=== PATIENT | male | born 1950 | race Caucasian/White ===

== ENCOUNTER 2016-12-29 06:22 | Observation (INO) | payer MEDICARE, OTHER ==
[~2016-12-29] VITALS: Ht 185.4 cm; Wt 56.8 kg
--- NOTE | ~2016-12-29 | A ---
[facility] Nutrition Therapy DATE: 12/30/16 Patient: EDDIE Prasad AXEL Physician: SRAVAN Address: [address] [place] [address] Room/Bed: [address] [place] [address], Zip: [place] [address] Admit Date: 12/29/16 Date of : 52 Height: 6 1 Weight: 125 56.8 NUTRITIONAL ASSESSMENT: REASON: PT SEEN FOR LOW BMI + 1 NUTRITION RISK PT RE: WEIGHT LOSS + TUBE FEED ASSESSMENT, ALSO CONSULT RECEIVED PT IS 66 Y.O. MALE ADMITTED FOR EGC PMH: RADIATION FIBROSIS, HODGKINS DISEASE S/P CHEMO & RADIATION, SEIZURE DISORDER (2'RADIATION?) Anthropometrics: 6'1", WT: 125# (57 KG), BMI: 16.5, 68%IBW Labs: NA+: 134, ALB: 3.3 Meds: KEPPRA, D5% I/O & Bowel function: 620/575 Skin Integrity: NO KNOWN SKIN ISSUES Estimated Nutrition Needs: 6080-8318 KCAL (32-36 KCAL/KG BW) 85-103 G PRO (1.5-1.8 G PRO/KG BW) FLUIDS CONSISTENT W/KCAL NEEDS OR MANAGE PER MD Assessment: CHART REVIEWED AND EVENTS NOTED. PT SEEN FOR LOW BMI + ONE NUTRITION RISK PT RE: WEIGHT LOSS, CONSULT FOR PEG TUBE RECOMMENDATIONS. PT IS S/P PEG PLACEMENT ON 12/29/16 IN ENDOSCOPY, TRANSFERRED TO . RD SPOKE TO PT AND AT BEDSIDE. REPORTS PT'S PO INTAKE HAS BEEN MINIMAL PAST SEVERAL WEEKS. EXPLAINED PT DEVELOPED "SMELLS SEIZURES" NOTING PT'S SENSATION OF SMELL HAS DIMINISHED AFFECTING HIS PO INTAKE AND APPETITE. STATES PT'S UBW IS ~242# AND HAS GONE DOWN TO CURRENT WEIGHT OF 125# IN PAST YEAR AND A HALF (~115# SEVERE WEIGHT LOSS NOTED). PT CURRENTLY RECEIVING BOLUS ENTERAL NUTRITION SUPPORT OF JEVITY 1.5/4 CANS DAILY (240 ML). PT TOLERATING BOLUS FEEDS, PER , PT AND RN. THIS RD WILL FURTHER ASSESS PT'S NUTRITIONAL NEEDS. PT AND REPORTED NO DIET QUESTIONS. RD TO FOLLOW. SEE RECOMMENDATIONS BELOW. Dx: SEVERE KCAL AND PROTEIN MALNUTRITION R/T CURRENT CLINICAL CONDITION, PMH, MINIMAL PO INTAKE AND APPETITE NOTED AEB LOW BMI OF 16.5, 68%IBW, SEVERE ~115# WEIGHT LOSS NOTED IN PAST YEAR AND A HALF. Intervention: 1. PEG PLACEMENT 2. RD CONSULT 3. BOLUS ENTERAL NUTRITION Monitoring, Evaluation and Goals: [facility] Nutrition Therapy DATE: 12/30/16 Patient: EDDIE BENTLEY Physician: SRAVAN Address: [address] [facility] Room/Bed: [address] [place] [address], Zip: [place] [address] Admit Date: 12/29/16 Date of : 51 Height: 6 1 Weight: 125 56.8 1. ENTERAL NUTRITION; PROVIDE >80% ESTIMATED VOLUME X 24 HOURS W/NO SIGNS OF INTOLERANCE 2. WEIGHTS; PROMOTE GRADUAL WEIGHT GAIN; PREVENT FURTHER WEIGHT LOSS 3. LABS; WNL MONITOR: -TF RATE/TOLERANCE -WEIGHTS -LABS Recommendations: 1. RECOMMEND TO ADVANCE NUMBER OF CANS-TOTAL BOLUS FEEDS OF JEVITY 1.5/6 CANS (237 ML EACH CAN) TOTAL DAILY -PROVIDES 2160 KCAL, 91 G PRO, 1094 ML FREE H20 ADD FREE H20 FLUSHES OF 150 ML AFTER EACH FEEDING RECOMMEND ONE CAN (237 ML) q 4 HOURS TO MEET PT'S CURRENT ESTIMATED NEEDS 2. IF PT UNABLE TO TOLERATE BOLUS FEEDS, RECOMMEND CONTINUOUS 24-HOUR ENTERAL FEEDING OF JEVITY 1.5 @ 20 ML/HR, ADVANCE 10 ML q 4 HOURS TO GOAL RATE OF 60 ML/HR -PROVIDES 2160 KCAL, 91 G PRO, 1094 ML FREE H20 ADD FREE H20 FLUSHES OF 150 ML q 4 HOURS TO MEET PT'S CURRENT ESTIMATED FLUID NEEDS 3. CONSULT CLAIMS SERVICE REPRESENTATIVE FOR SAFE SWALLOW EVALUATION 4. PLEASE WEIGH q 3 DAYS FOR MONITORING PURPOSES, PT CLINICALLY UNDERWEIGHT RD WILL F/U PER PROTOCOL PT IS MOD/SEVERELY COMPROMISED Respectfully, MARIO KELLOGG MS, RD, LD Food and Nutritional Services [facility] cc: client file
--- NOTE | ~2016-12-29 | MAL ---
[facility] Nutrition Therapy DATE: 12/30/16 Patient: EDDIE BENTLEY Physician: SRAVAN Address: [address] [facility] Room/Bed: [address] [place] [address], Zip: [place] [address] Admit Date: 12/29/16 Date of : 51 Height: 6 1 Weight: 125 56.8 PHYSICAL MALNUTRITION ASSESSMENT Energy Intake, Chronic Illness Severely reduced: </=50% needs for >/=1 month Energy Intake Comment: PT AND REPORT MINIMAL PO INTAKE PAST SEVERAL WEEKS. Weight Loss, Chronic Illness Severe: >5% past 1 month Severe: >7.5% past 3 months Severe: >10% past 6 months Severe: >20% past 1 year Weight Loss, Comment: REPORT PT HAS LOST ~117# OVER PAST YEAR AND A HALF. (UBW IS ~242#). Physical Findings Body Fat and Muscle Mass Moderate: (suggested) some loss of subqutaneous fat and/or muscle mass Severe: (obvious) significant muscle wasting and/or loss of subcutaneous fat Physical Findings Functional Capacity Moderate: (suggested) reduced functional capacity Severe: (obvious) bedridden or otherwise significantly reduced functional capacity Physical Findings Comment: PER RD OBSERVATION, HOLLOW/SCOOPING DEPRESSED TEMPORAL NOTED. ALSO, PROTRUDING & PROMINENT SHOULDER, CLAVICLE AND SCAPULA NOTED. MINIMAL MUSCLE DEFINITION OBSERVED IN BICEPS, TRICEPS AND CALVES. EYES OBSERVED TO BE PRONOUNCED, HOLLOW AND DEPRESSED AND PROMINENT CHEST NOTED. DRY HAIR, EYES AND MOUTH OBSERVED. Dietitian Malnutrition Assessment Score: MODERATE/SEVERELY COMPROMISED Malnutrition Etiology Summary: Chronic illness moderate Chronic illness severe Malnutrition Survey Comment: SEE RD ASSESSMENT 12/30/16 Respectfully, MARIO KELLOGG MS, RD, LD [facility] Nutrition Therapy DATE: 12/30/16 Patient: EDDIE BENTLEY Physician: SRAVAN Address: [address] [facility] Room/Bed: [address] [place] [address], Zip: [place] [address] Admit Date: 12/29/16 Date of : 51 Height: 6 1 Weight: 125 56.8 Food and Nutritional Services [facility] cc: client file
--- NOTE | ~2016-12-29 | CO ---
Unit #: [id number] #: [id number] Patient: CEFERINO BENTLEY [id number] [address] [place], [place] [address] [id number] I MR#: [id number] NAME: CEFERINO BENTLEY ROOM: 47 Age: 66 Sex: M Admission Date: 12/29/2016 : 1950 Attending Physician: Efraín Decker M.D. Primary Care Physician: Nirmal Hanson M.D. Requesting Physician: Efraín Deckre M.D. Consultation Date: 12/29/2016 CONSULTATION REPORT REASON FOR CONSULTATION Abnormal weight loss, please evaluate for malignancy. HISTORY OF PRESENT ILLNESS Ceferino Bentley is 66 years old with a history of Hodgkin's disease diagnosed in 1991, treated with chemoradiation therapy. In the past year to year and a half, he has lost more than 100 pounds in weight secondary to apparently decreased sensation of smell and parosmia. Weight loss reached the point where a PEG tube was recommended and placed earlier today. 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 Mr. Bentley has had several long-term problems related to his chemoradiation therapy with Hodgkin's disease which has never reoccurred. 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 He recently underwent evaluation with a cardiac workup including echocardiogram and stress test which were negative. 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 He also developed seizures in 2007 having recurrent seizures, five or six a night, until about three years ago when they have stopped. PAST MEDICAL HISTORY 1. History of progressive weight loss as detailed. 2. Seizure disorder. 3. Radiation fibrosis. PAST SURGICAL HISTORY 1. Left carotid subclavian graft. 2. Right carotid endarterectomy. 3. Colonoscopy. 4. Hemorrhoidectomy. 5. Lymph node biopsy at time of diagnosis of Hodgkin's disease. FAMILY HISTORY No history of malignancy in the immediate family. SOCIAL HISTORY He is , lives with his . He was unable to work from 2007 after developing a seizure disorder. He was previously disabled from 1991 to 1995 because of his Hodgkin's disease. Smoked a pack a day until 1990 when he was diagnosed with Hodgkin's disease. Does not drink any alcohol. REVIEW OF SYSTEMS 14-point review of systems. CONSTITUTIONAL: As discussed. Unit #: [id number] #: [id number] Patient: CEFERINO BENTLEY EYES: Negative. EARS, NOSE, MOUTH AND THROAT: Negative. CARDIOVASCULAR: No chest pain, no palpitations. RESPIRATORY: Chronic shortness of breathing, cough. No hemoptysis. GASTROINTESTINAL: Parosmia, progressive weight loss. No change in bowel habits. GENITOURINARY: Negative. NEUROLOGIC: Repeated episodes of dizziness and vertigo. Parosmia. History of a seizure disorder. PSYCHIATRIC: Negative. ALLERGIC/LYMPHATIC: Negative. SKIN: Negative. PHYSICAL EXAMINATION GENERAL: On examination, he is a middle aged man who looks significantly older than stated age. VITAL SIGNS: Temperature is 98.2, pulse rate is 59, O2 sats 96% on room air, blood pressure 133/86. HEENT: Shows evidence of recent weight loss. No pallor or icterus. Mucous membranes are moist. NECK: No adenopathy, JVD, thyromegaly. Bilateral healed incisions of carotid endarterectomy. CARDIOVASCULAR SYSTEM: First and second heart sounds are heard, regular, with no murmurs, gallops, rubs. LUNGS: Chest expansion symmetric bilaterally. Decreased breath sounds on the right side. ABDOMEN: Soft, nontender. Bowel sounds active. EXTREMITIES: Warm with good pulses. No edema, cyanosis, clubbing. NEUROLOGICAL: He is awake, alert, oriented x3 without any focal findings. PSYCHIATRIC: Normal affect. SKIN: Negative. LYMPHATIC: Negative. ALLERGIC/ENDOCRINE: Negative. DIAGNOSTIC STUDIES LABORATORY: Labs pending. ASSESSMENT AND PLAN Mr. 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 He has developed parosmia and progressive weight loss and now has a feeding tube placed. Consultation is to evaluate for malignancy. Would recommend basic chemistries, thyroid functions, ESR, sed rate, and I will review his recent CT scan studies and based upon that, additional recommendations. I had an extensive discussion about the situation with Mr. Bentley as well as his who I met separately in his room. Thank you for allowing me to participate in his care. Dictated by... Patrick Ortega M.D. [facility]/gian Unit #: [id number] #: [id number] Patient: CEFERINO BENTLEY TD: 12/30/2016 08:28 JOB #: [id number] CONSULTATION REPORT Page 1 of 1 X Patrick Ortega MD X CONSULTATION REPORT
--- NOTE | ~2016-12-29 | OR ---
Unit #: [id number] #: [id number] Patient: EDDIE BENTLEY [id number] [address] [address] [id number] I MR#: [id number] NAME: EDDIE BENTLEY. ROOM: 476 Date of Procedure: 12/29/2016 Admission Date: 12/29/2016 Surgeon: Efraín Decker M.D. : 1950 Attending Physician: Efraín Decker M.D. Primary Care Physician: Nirmal Hanson M.D. OPERATIVE REPORT JOB NOTE: CC: PRIMARY CARE PHYSICIAN PROCEDURES PERFORMED 1. Esophagogastroduodenoscopy with foreign body removal. 2. Esophagogastroduodenoscopy with snare polypectomy with hemoclip application. INDICATIONS FOR PROCEDURE The patient with severe weight loss, anorexia, unable to eat, cachectic, and was brought in for an EGD and PEG tube placement. MEDICATIONS Monitored anesthesia. POSTOPERATIVE FINDINGS 1. A large foreign body esophagus. 2. . 3. . 4. Normal duodenum and distal duodenum. PLAN Follow up on pathology report. I will start on tube feedings. DESCRIPTION OF PROCEDURE The patient was explained of the procedure, risks, and benefits along with risks and benefits of anesthesia. He was brought to the endoscopy room. Propofol anesthesia was given. Bite block was placed. The scope was passed down the mouth into the esophagus, stomach, duodenum, and distal duodenum. Findings have been described above. Gently, the scope was pulled out. He tolerated it well. No major complications were seen. Dictated by... Roshan Peña/keshav TD: 01/05/2017 09:19 JOB #: [id number] Unit #: [id number] #: [id number] Patient: EDDIE BENTLEY OPERATIVE REPORT Page 1 of 1 X Efraín Decker MD X PROCEDURE OPERATIVE NOTE
[~2016-12-29 06:22] MED LIST: ATIVAN PO; AUGMENTIN875 M1 PO; CHILDREN'S CLARI5 MG; COUMADIN7.5 MG; DESYREL150 M1; FAMOTIDINE; FAMOTIDINE PO; KEPPRA500 M2; MEDROL4 MG/DOSE- PO
[2016-12-29] MEDS ORDERED: KEPPRA500 MG PO (07:11)
[2016-12-29] MEDS ORDERED: LAMOTRIGINE100 MG PO (07:11)
[2016-12-29] MEDS ORDERED: ZYRTEC10 M1 PO (07:12)
[2016-12-29] MEDS ORDERED: WARFARIN SODIU7.5 M1 PO (07:13)
[2016-12-29] MEDS ORDERED: DESYREL100 MG PO (07:13)
[2016-12-29] MEDS ORDERED: PROAIR HFA8.5 GM INH (07:14)
[2016-12-29] MEDS ORDERED: SYMBICORT (07:14)
[2016-12-29] MEDS ORDERED: STOOL SOFTENER (07:15)
[2016-12-29] MEDS ORDERED: [UNRECOGNIZED DRUG - REMARK] (07:15)
[2016-12-29] MEDS ORDERED: MUCINEX (07:15)
[2016-12-29 12:04] LABS: BASOPHIL% 0.7 % (0-2.5); EOSINOPHIL# 0.4 X10e3 (0-0.7); EOSINOPHIL% 6.8 % (0.0-7.0); HEMATOCRIT 37.1 % (38.0-50.0); HEMOGLOBIN 12.1 gm/dL (13.0-16.0); LYMPHOCYTE# 0.7 X10e3 (1.0-3.5); LYMPHOCYTE% 12.5 % (17.0-45.0); MEAN CELL VOLUME 85.5 FL (83-96); MEAN CORPUSCULAR HEMOGLOBIN 27.8 PG (28-34); MEAN CORPUSCULAR HGB CONC 32.5 g/dL (30-36); MEAN PLATELET VOLUME 5.6 FL (6.5-11.5); MONOCYTE# 0.5 X10e3 (0-1.0); MONOCYTE% 9.1 % (3.0-12.0); NEUTROPHIL# 3.8 X10e3 (1.5-7.1); NEUTROPHIL% 70.9 % (40-75); PLATELET COUNT 314 X10e3 (140-420); RED BLOOD COUNT 4.34 X10e (3.90-5.60); RED CELL DISTRIBUTION WIDTH 14.2 % (11.0-15.5); WHITE BLOOD COUNT 5.3 X10e3 (4.0-10.5)
[2016-12-29 12:07] LABS: DIFF IND NO
[2016-12-29 12:31] LABS: ALBUMIN SERUM 3.3 g/dL (3.5-5.0); BILIRUBIN,TOTAL 0.5 mg/dL (0.2-2.0); BUN/CREATININE RATIO 12.22; CALCIUM SERUM 9.3 mg/dL (8.4-10.2); CREATININE SERUM 0.9 mg/dL (0.6-1.4); GLOM FILT RATE Estimated 89.3 mL/min (>60); POTASSIUM 4.8 mmol/L (3.5-5.1)
[2016-12-30] MEDS ORDERED: LORTAB 5-325 M1 EACH PO (15:28)
[2016-12-31 21:45] LABS: CA 19-9 14 U/mL (<34); CA125 58 U/mL (<35)
== END 2016-12-30 17:00 | disposition home health service (06) ==
LOC: COPS 06:22 → CPACUOF 10:42 → C4C 10:42 → CPACUOF 12:01 → C4C 12:01
PROVIDERS: Internal Medicine
DX: K31.7 Polyp of stomach and duodenum (principal); T18.108A Unspecified foreign body in esophagus causing other injury, initial encounter; G40.909 Epilepsy, unspecified, not intractable, without status epilepticus; Z85.118 Personal history of other malignant neoplasm of bronchus and lung; Z87.891 Personal history of nicotine dependence; Z88.8 Allergy status to other drugs, medicaments and biological substances; Z98.890 Other specified postprocedural states
CPT/HCPCS: 80053; 82378; 84443; 85025; 85610; 86301; 86304; 88305; 88312; 94760; 96374; 96376; G0378; J0690; J1170

== ENCOUNTER 2017-01-15 18:45 | Inpatient (IN) | payer MEDICARE, OTHER ==
[~2017-01-15] VITALS: Ht 182.9 cm; Wt 58.0 kg
--- NOTE | ~2017-01-15 | XA166 ---
[facility] A Service of [facility] RADIOLOGY TEXT RESULTS PATIENT: EDDIE BENTLEY LOCATION: A : [birth year] UNIT #: [id number] AGE: [address]: Bhaskar Donald MD SEX: M ORDER DR: [id number] [facility] [address] [facility]. [place], [place] [address] [id number] I MR#: [id number] Acc #: [id number] NAME: EDDIE BENTLEY. : 1950 SEX: M STUDY DATE/TIME: 01/16/2017 10:17 UNIT: [facility] ROOM: [facility] STUDY DESCRIPTION: XA PICC Line Placement WO Port Attending Physician: Bhaskar Donald M.D. Ordering Physician: Eric Ga M.D. Primary Care Physician: Nirmal Hanson M.D. MEDICAL IMAGING REPORT This report is preliminary unless electronic signature is present EXAM Right-sided PICC line placement. INDICATION Need for IV access in a patient with a history of Hodgkin's lymphoma. The procedure was explained to the patient including risks, benefits, potential complications, potential for alternative forms of treatment. Informed consent was obtained and, prior to initiating procedure, formal time-out procedure was performed. Using all elements of maximal sterile barrier technique including hand hygiene, caps, sterile gowns and gloves and masks, the right arm was prepped with 2% Chlorhexidine for cutaneous antisepsis and covered with a large sterile sheet. The ultrasound probe was covered with sterile probe cover and sterile gel was applied. Real-time sterile ultrasound guidance was used to localize a right upper extremity vein which was found to be patent and compressible. A hard copy ultrasound image was obtained after local anesthesia with 1% Xylocaine. The vein was punctured using real-time sterile ultrasound guidance and an 0.18 guidewire was advanced into the right axillary vein. Advanced peel-away sheath over the wire, however, was unable to manipulate the wire more distally. I did perform a venogram through the sheath and at least a portion of the sheath appeared to be extraluminal. At this point, the sheath was removed and manual pressure was applied until hemostasis was obtained and the vein was reaccessed more cranially. At this point, the wire was advanced easily into the superior vena cava. The peel-away sheath was replaced and a catheter was measured and trimmed and was advanced over the wire and positioned within the superior vena cava. Following placement of the catheter, it flushed and aspirated easily. Total fluoroscopy time was 0.4 minutes. AKA was 1 mGy. IMPRESSION [facility] A Service of [facility] RADIOLOGY TEXT RESULTS PATIENT: EDDIE BENTLEY LOCATION: [place] [address] : [birth year] UNIT #: [id number] AGE: [address]: Bhaskar Donald MD SEX: M ORDER DR: Technically successful placement of a right-sided PICC line which terminates within the superior vena cava. This catheter is ready for immediate use. Ultrasound and fluoroscopy were used during placement of the catheter and permanent images were saved. Dictated by... Jeanine West M.D. THIS IS AN ELECTRONICALLY VERIFIED REPORT Jeanine West M.D. at 01/19/2017 5:39 PM AFF/bd TD: 01/18/2017 13:47 JOB #: [id number] MEDICAL IMAGING REPORT Page 1 of 1 COPY
--- NOTE | ~2017-01-15 | CR97 ---
[facility] A Service of [facility] RADIOLOGY TEXT RESULTS PATIENT: EDDIE BENTLEY LOCATION: A 240-01 : [birth year] UNIT #: [id number] AGE: [address]: Bhaskar Donald MD SEX: M ORDER DR: [id number] [facility] [address] [facility]. [place], [place] [address] [id number] I MR#: [id number] Acc #: [id number] NAME: EDDIE BENTLEY. : 1950 SEX: M STUDY DATE/TIME: 01/16/2017 9:21 UNIT: [facility] ROOM: 240 STUDY DESCRIPTION: CR Esophagram Attending Physician: Bhaskar Donald M.D. Ordering Physician: Eric Ga M.D. Primary Care Physician: Nirmal Hanson M.D. MEDICAL IMAGING REPORT This report is preliminary unless electronic signature is present REVISED REPORT SEE ADDENDUM EXAM Esophagram, 01/16/2017. INDICATIONS 66-year-old male with possible aspiration. Reflux, cough, congestion symptoms 2 weeks. Lymphoma. Status post radiation therapy. TECHNIQUE Spot fluoroscopic views of the esophagus were obtained in various projections after the patient ingested gas crystals and thick and thin liquid barium on 01/16/2017. Correlation is made with CT 01/15/2017. FINDINGS Notes indicate that 2.6 minutes of fluoroscopy time was used in the case. 82 spot fluoroscopic images from the procedure were saved to the DR PACS. The examination is abnormal. There is aspiration of the liquid barium, best demonstrated on repeat swallowing. There was a spontaneous cough reflex. There is partial clearing of the barium from the trachea. Due to the aspiration, only limited imaging of the esophagus was obtained. There is diminished efficacy of the primary esophageal stripping wave and evidence of at least mild esophageal dysmotility. There appears to be a small amount of debris within the distal third esophagus. Contrast did pass across the GE junction into the stomach. Somewhat tortuous esophagus particularly in its proximal and mid aspects likely related to chronic lung changes appearing to reflect fibrosis, and old healed granulomatous disease with shift of mediastinal structures to the right secondary to right-sided volume loss. Please see the recent chest CT 01/15/2017, for further details. Postop changes associated with the left neck soft tissue. [facility] A Service of [facility] RADIOLOGY TEXT RESULTS PATIENT: EDDIE BENTLEY LOCATION: [place] [address] : [birth year] UNIT #: [id number] AGE: [address]: Bhaskar Donald MD SEX: M ORDER DR: IMPRESSION 1. Aspiration of the liquid barium with a spontaneous cough reflex. The patient would likely benefit from further evaluation with a dedicated video assisted speech swallow with speech therapy. 2. The esophagus demonstrates evidence of at least mild esophageal dysmotility. There is tortuosity of the proximal and middle thirds of the esophagus probably related to chronic fibrosis and scarring and shift of mediastinal structures to the right, better demonstrated on chest CT performed 01/15/2017. 3. Limited imaging of the remainder of the esophagus demonstrated no impediment to contrast passage into the stomach across the GE junction. 4. Notes indicate 2.6 minutes of fluoroscopy time used in the case. 82 images from the fluoroscopic procedure were saved to the DR PACS. Dictated by... Dickson Cleaning M.D. THIS IS AN ELECTRONICALLY VERIFIED REPORT Dickson Cleaning M.D. at 01/17/2017 7:38 AM Mehrdad TD: 01/16/2017 18:07 JOB #: [id number] ADDENDUM Not mentioned above, there is relative narrowing of the cervical esophagus. Given the history of malignancy and radiation therapy, this could relate to sequelae of radiation therapy, possibility of a reflux associated stricture is also in the differential. Upper endoscopy may be useful for further assessment. JOB# [id number] Dictated by... Dickson Cleaning M.D. THIS IS AN ELECTRONICALLY VERIFIED REPORT Dickson Cleaning M.D. at 01/18/2017 5:11 PM Bouchra TD: 01/16/2017 18:03 JOB #: [id number] CC: Sobradena/invision Please Delete STS. [facility] A Service of [facility] & [facility] RADIOLOGY TEXT RESULTS PATIENT: EDDIE BENTLEY LOCATION: [facility] 240-01 : [birth year] UNIT #: [id number] AGE: [address]: Bhaskar Donald MD SEX: M ORDER DR: MEDICAL IMAGING REPORT Page 1 of 1 COPY
--- NOTE | ~2017-01-15 | EKG ---
PATIENT: EDDIE BENTLEY UNIT #: [id number] Ventricular Rate: 112 BPM Atrial Rate: 112 BPM P-R Interval: 120 ms QRS Duration: 84 ms Q-T Interval: 310 ms QTC Calculation(Bezet): 423 ms P [place]: 31 degrees Calculated R [place]: 12 degrees Calculated T [place]: 69 degrees Diagnosis Line: Sinus tachycardia Early repolarization Diagnosis Line: Otherwise normal ECG Diagnosis Line: No previous ECGs available Diagnosis Line: Confirmed by THALIA HINSON MD ([id number]) on 01/15/2017 Diagnosis Line: 11:09:59 PM INTERPRETING MD: SRAVAN ALAMO
--- NOTE | ~2017-01-15 | FU ---
[facility] Nutrition Therapy DATE: 01/19/17 Patient: EDDIE LIRATERELL Physician: MARLENE Address: [address] Room/Bed: [address] [place] [address], Zip: [place] [phone] Admit Date: 01/15/17 Date of : 51 Height: 6 0 Weight: 127 58 NUTRITION MONITORING/FOLLOW-UP: Reason: Enteral nutrition follow-up/consult for recommendations Admitting dx: Pt is a 66 y/o male admitted with PNA sepsis Anthropometrics: Ht:73" Wt:57kg BMI:16.5 %IBW:68% Current wt: 58kg Labs: Na+:134, Gluc:118, BUN:11, Creat:.6, Ca++:8.5, POC:94-103, Lip:20 Meds: Coumadin, Reglan, Keppra, Robitussin, Protonix, Zosyn, Zofran GI: BM 01/17 Skin: J-tube site- ABD Estimated Nutrition Needs: 9366-6962 kcals (32-36 kcal/kg) 85-103 g protein (1.5-1.8 g pro/kg) Fluids consistent wt kcals needs or per MD. Assessment: Chart reviewed, events noted. RD was consulted for enteral nutrition recommendations. Pt is s/p G-tube removal and J-tube placement. RD was able to speak to the pt's . She states that the pt will not do 24 hr continuous feedings so the he can keep moving/socialize. Pt's wants recommendations for 14 hour feedings. Of note, pt was receiving bolus feedings in his G-tube at home prior to J-tube placement. The tube was moved due to the pt aspirating. Pt's tube feeds were off at time of visit due to pt being wheeled down for a video swallow evaluation. RD to leave extensive home enteral nutrition support regimen with pt's . RD will continue to follow-up per protocol. Dx: Severe protein calorie malnutrition r/t current clinical condition, PMH, minimal PO intake and appetite AEB BMI of 16.5 (underweight), 68% IBW, ~115# weight loss in year and a half (severe) - ACTIVE Intervention: See RD recs below Monitoring, Evaluation and Goals: 1. Oral diet advancement vs. enteral nutrition initiation -MET (EN initiated) 2. Promote gradual weight gain; prevent further weight loss - IN PROGRESS/NOT MET 3. Labs WNL - NOT MET (Na+, Gluc, BUN, Creat, Ca++, Lip) [facility] Nutrition Therapy DATE: 01/19/17 Patient: EDDIE Prasad MC Physician: MARLENE Address: [address] [place] [address] Room/Bed: [address] [place] [address], Zip: [place] [address] Admit Date: 01/15/17 Date of : 51 Height: 6 0 Weight: 127 58 Recommendations: 1. Once medically feasible, initiate nocturnal enteral nutrition support with Jevity 1.5. Goal rate will be reached over 4 nights. Enteral nutrition schedule is as follows: Night 1) Run at 60 ml x 14 hrs to provide 840 ml, 1260 kcals, 54 g protein, & 638 ml water. In addition to the nocturnal feeds, run at 60 ml x 6 hours during the day. This regimen will provide a total of 1200 ml, 1800 kcals, 77 g protein, & 912 ml water. Flush with 270 ml free water (warm tap or bottled water) 4 times daily, or per MD. Night 2) Run at 70 ml x 14 hours to provide 980 ml, 1470 kcals, 63 g protein, & 745 ml water. In addition to the nocturnal feeds, run at 70 ml x 3 hours during the day. This regimen provides a total of 1190 ml, 1785 kcals, 76 g protein, & 904 ml water. Flush with 280 ml free water 4 times daily, or per MD. Night 3) Run at 80 ml x 14 hours to provide 1120 ml, 1680 kcals, 71 g protein, & 851 ml water. In addition to the nocturnal feeds, run at 80 ml x 3 hours during the day. This regimen provides a total of 1360 ml, 2040 kcals, 87 g protein, & 1034 ml water. Flush with 250 ml free water 4 times daily, or per MD. Night 4) Run at GOAL rate of 95 ml x 14 hours. No additional feeds will be needed during the day. This regimen provides a total of 1330 ml, 1995 kcals, 85 g protein, & 1011 ml water. Flush with 170 ml free water 4 times daily, or per MD. 2. If 12 hour noctural feeds are desired instead of 14 hour feeds, recommendations are as follows: Jevity 1.5 at 110 ml x 12 hours This regimen will provide a total of 1320 ml, 1980 kcals, 84 g protein, & 1003 ml water Flush with 250 ml 4 times daily, or per MD 3. If higher volume nocturnal tube feeds are not well tolerated, change to 24 hour continuous feeds with Jevity 1.5 @ 55 ml/hr to provide 1320 ml, 1980 kcals, 84 g protein & 1003 ml water. Flush with 250 ml free water 4 times daily, or per MD. 4. Continue LOG SKIDDER evaluation for safe swallow. If the patient is started on an oral diet at home, please have home health dietitian re-assess the patient's enteral nutrition needs based on oral intake. [facility] Nutrition Therapy DATE: 01/19/17 Patient: EDDIE BENTLEY Physician: MARLENE Address: [address] [place] [address] Room/Bed: [address] [place] [address], Zip: [place] [address] Admit Date: 01/15/17 Date of : 51 Height: 6 0 Weight: 127 58 5. Continue to weigh q 3 days for monitoring purposes. Status: Mod-severe RD will follow Respectfully, Rachel Lam, Officer Captain Baldo Regalado, MS, RD, LD [employer] [facility] cc: client file
--- NOTE | ~2017-01-15 | TOC ---
Unit #: [id number] #: [id number] Patient: EDDIE BENTLEY [id number] [facility] [address]. [place], [place] [address] [id number] I MR#: [id number] NAME: EDDIE BENTLEY ROOM: 240 Age: 66 Sex: M Admission Date: 01/15/2017 : 1950 Attending Physician: Bhaskar Donald M.D. Primary Care Physician: Nirmal Hanson M.D. TRANSFER OF CARE SUMMARY HOSPITAL STAY SUMMARY DIAGNOSIS ON ADMISSION 1. Pneumonia. 2. Sepsis. CURRENT DIAGNOSES 1. Sepsis, resolved. 2. Pneumonia secondary to aspiration. 3. Fibrotic mediastinum. 4. History of lymphoma. 5. Dysphagia status post J-tube placement. 6. Weight loss. 7. History of Hodgkin disease. 8. 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 9. Seizure disorder. 10. History of deep vein thrombosis. 11. History of pulmonary embolism. 12. History of left subclavian steal syndrome. 13. History of right carotid endarterectomy and left carotid subclavian graft. CONSULTATIONS Dr. Zoltan Ga in pulmonary consultation. HOSPITAL COURSE Lsxoo-rpny-tebr-old patient was admitted to [facility] with fever. Details are as per admission H and P. Patient was treated for septic shock and aspiration pneumonia. Patient required vasopressors for hypotension and was treated in ICU. Patient's condition has remarkably improved, and he is transferred out of ICU and is off vasopressors. He is treated with antibiotics. It was thought that the patient is having aspiration secondary to his history of radiation fibrosis. Patient had EGD done, which revealed some esophageal dysmotility secondary to likely fibrosis; therefore, Dr. Decker placed a J-tube. Patient is doing much better. Patient's further hospital course will be as per my partners. The plan has been discussed multiple times with the patient's . Dictated by... Bhaskar Donald M.D. Unit #: [id number] #: [id number] Patient: EDDIE BENTLEY Sophia TD: 01/21/2017 07:56 JOB #: [id number] TRANSFER OF CARE SUMMARY Page 1 of 1 X Bhaskar Donald MD TRANSFER OF CARE SUMMARY
--- NOTE | ~2017-01-15 | CR72 ---
[facility] A Service of [facility] RADIOLOGY TEXT RESULTS PATIENT: EDDIE BENTLEY LOCATION: [facility] [address] : [birth year] UNIT #: [id number] AGE: [address]: Bhaskar Donald MD SEX: M ORDER DR: [id number] [facility] [address] [facility]. [place], [place] [address] [id number] I MR#: [id number] Acc #: [id number] NAME: EDDIE BENTLEY. : 1950 SEX: M STUDY DATE/TIME: 01/15/2017 20:13 UNIT: [facility] ROOM: [facility] STUDY DESCRIPTION: CR Chest Single View Portable Attending Physician: Bhaskar Donald M.D. Ordering Physician: Kaylie Schwartz M.D. Primary Care Physician: Nirmal Hanson M.D. MEDICAL IMAGING REPORT This report is preliminary unless electronic signature is present EXAM Portable chest x-ray 01/15/2017 HISTORY Short of air. 2 weeks duration. Prior history of Hodgkin's lymphoma right lung. Congestion. FINDINGS AP radiograph of the chest is presented. Comparison 02/28/2015. The left lung is well inflated without evidence of acute pulmonary disease, left pleural effusion or pneumothorax. There are surgical clips superimposed over the left lung apex. The right lung is abnormal. It is decreased in volume. There is either pleural thickening or small to moderate pleural effusion extending over the apex. There are densely calcified right hilar lymph nodes and there is increased soft tissue density in the right hilar region compared to the prior examination. This has a somewhat spiculated margin. Extensive linear densities throughout the aerated right lung with patchy airspace disease at the right lower lung zone with some evidence of fibrotic change at the right lung base. The chronicity of the right lung findings is unclear. The possibility of right hilar mass with postobstructive pneumonia should be considered. Given the patient's stated history, if the patient has had radiation therapy to the right chest, the possibility of postradiation change in the hilar region and postradiation fibrosis in the right lung could be considered. Atypical presentation of community-acquired pneumonia with associated reactive adenopathy in the right hilum might be considered. Consider CT examination for further assessment. Correlation with any imaging studies in the interval from 2014 would be useful. The heart is probably normal in size. There is no acute-appearing bony abnormality. [facility] A Service of [facility] RADIOLOGY TEXT RESULTS PATIENT: EDDIE BENTLEY LOCATION: [place] [address] : [birth year] UNIT #: [id number] AGE: [address]: Bhaskar Donald MD SEX: M ORDER DR: Dictated by... Robbie Carroll M.D. THIS IS AN ELECTRONICALLY VERIFIED REPORT Robbie Carroll M.D. at 01/17/2017 4:57 PM Karen TD: 01/16/2017 09:38 JOB #: [id number] MEDICAL IMAGING REPORT Page 1 of 1 COPY
--- NOTE | ~2017-01-15 | CR240 ---
[facility] A Service of [facility] & [facility] RADIOLOGY TEXT RESULTS PATIENT: EDDIE BENTLEY LOCATION: [facility] 240-01 : [birth year] UNIT #: [id number] AGE: [address]: Bhaskar Donald MD SEX: M ORDER DR: [id number] [facility] [address] [place], [place] [address] [id number] I MR#: [id number] Acc #: [id number] NAME: EDDIE BENTLEY. : 1950 SEX: M STUDY DATE/TIME: 01/19/2017 11:05 UNIT: [facility] ROOM: [facility] STUDY DESCRIPTION: CR Swallowing Fx W Cine or Vid Attending Physician: Bhaskar Donald M.D. Ordering Physician: Bhaskar Donald M.D. Primary Care Physician: Nirmal Hanson M.D. MEDICAL IMAGING REPORT This report is preliminary unless electronic signature is present EXAM Video swallowing study, 01/19/17. CLINICAL HISTORY Dysphagia. PROCEDURE Video swallowing study was performed under the guidance of the department of speech pathology. Total fluoroscopy time 3.4 minutes. FINDINGS No aspiration was seen, though there was laryngeal penetration, which did induce cough, which cleared the material. Mitigating maneuvers were performed. IMPRESSION Penetration without aspiration. Dictated by... Rancho Patel M.D. THIS IS AN ELECTRONICALLY VERIFIED REPORT Rancho Patel M.D. at 01/20/2017 3:57 PM TEV/pc TD: 01/20/2017 10:24 JOB #: [id number] MEDICAL IMAGING REPORT Page 1 of 1 COPY
--- NOTE | ~2017-01-15 | CO ---
Unit #: [id number] #: [id number] Patient: EDDIE BENTLEY [id number] [address] [place], [place] [address] [id number] I MR#: [id number] NAME: EDDIE BENTLEY. ROOM: [facility] Age: 66 Sex: M Admission Date: 01/16/2017 : 1950 Attending Physician: Bhaskar Donald M.D. Primary Care Physician: Nirmal Hanson M.D. Consultation Date: 01/16/2017 CONSULTATION REPORT REASON FOR CONSULT ICU management. HISTORY OF PRESENT ILLNESS This is a very pleasant 66-year-old male with past medical history significant for Hodgkin lymphoma diagnosed in 1991, treated with chemoradiation, history of smell (1) , radiation fibrosis who presented to the emergency room with high fever. Patient's stated that 2 weeks ago he had PEG tube placement due to severe malnutrition and underweight. Patient was seen by Dr. Ortega for evaluation of his weight loss, and his workup was negative for cancer; however, the diagnosis of smell (1) was made and feeding tube was suggested to the patient. Since his procedure done, his noted that he was coughing but there was no sputum production for the last 24 hours. Upon presentation to the ER his blood pressure was noted to be low with elevated lactic acid. Patient was placed on Levophed drip and transferred to the ICU. PAST MEDICAL HISTORY 1. History of Hodgkin disease is 1991. 2. Radiation fibrosis. 3. Smell (1) . 4. Weight loss. 5. Malnutrition. 6. Underweight. PAST SURGICAL HISTORY 1. Left carotid subclavian graft. 2. Right carotid endarterectomy. 3. Colonoscopy. 4. Hemorrhoidectomy. 5. Lymph node biopsy. FAMILY HISTORY No malignancy in the immediate family. SOCIAL HISTORY Patient is . He lives with his . He is unable to work from 2007 after he developed seizure disorder. Was previously disabled from 1991 to 1995 because of his Hodgkin disease. He used to smoke a pack per day until 1990. No history of alcohol or drug abuse. Unit #: [id number] #: [id number] Patient: EDDIE BENTLEY REVIEW OF SYSTEMS Twelve-point review of systems was obtained and was negative except for what was mentioned in the HPI. ALLERGIES No known drug allergies. PHYSICAL EXAM GENERAL: The patient is very cachectic. VITAL SIGNS: Blood pressure 105/62, respiratory rate 18, O2 saturation 96%. HEENT: Atraumatic, normocephalic. PERRLA, EOMI. NECK: Supple. No JVD. No lymphadenopathy. CHEST: Fine rhonchi at the bases. . HEART: S1, S2. No murmur, gallops or rubs. ABDOMEN: Soft, nontender. Bowel sounds positive. No hepatosplenomegaly. EXTREMITIES: No edema or cyanosis. SKIN: No rashes. [employer]: Awake, alert, oriented x3. No focal motor/sensory deficits. LABS AND OTHER TESTS LABS: Creatinine 1.0, sodium 128. White blood count 14.1, hemoglobin 12.2. ASSESSMENT 1. Septic shock secondary to pneumonia. 2. Aspiration pneumonia. 3. Radiation fibrosis. 4. Rule out malignancy. 5. Underweight. 6. Malnutrition. 7. Chronic anemia. 8. Hyponatremia. 9. History of Hodgkin disease. 10. Seizure disorder. PLAN 1. Patient will be monitored in the ICU very closely, and midodrine will be added to his pressors. 2. Will continue IV hydration. 3. Esophagram to assess his possible aspiration pneumonia. 4. Bronchoscopy in the morning for both diagnostic and therapeutic purposes. 5. DVT and GI prophylaxis. NOTE: I would like to thank Dr. Green for allowing me to be part of this patient's care. Critical care time spent on this patient was 32 minutes. Dictated by... Roshan Solares TD: 01/16/2017 09:24 JOB #: [id number] Unit #: [id number] #: [id number] Patient: EDDIE BENTLEY CONSULTATION REPORT Page 1 of 1 X LIBBY DU MD CONSULTATION REPORT
--- NOTE | ~2017-01-15 | OR ---
Unit #: [id number] #: [id number] Patient: EDDIE BENTLEY [id number] [address] [address] [id number] Baltazar MR#: [id number] NAME: EDDIE BENTLEY ROOM: 240 Date of Procedure: 01/18/2017 Admission Date: 01/15/2017 Surgeon: Libby Ga M.D. : 1950 Attending Physician: Bhaskar Donald M.D. Primary Care Physician: Nirmal Hanson M.D. PROCEDURE OPERATIVE NOTE PROCEDURE Diagnostic and therapeutic bronchoscopy with bronchial washing and endobronchial forceps biopsy. PREOP DIAGNOSIS Respiratory failure and aspiration pneumonia. POSTOP DIAGNOSES AND FINDING 1. Large, thick yellowish mucus plugs obstructing completely the right main bronchus. 2. Diffuse stenosis in the right main stem with endobronchial mucosal growth related, likely, to history of radiation. PREMEDICATION MAC sedation. COMPLICATIONS None. DESCRIPTION OF THE PROCEDURE An informed consent was obtained from the patient after explaining the benefits and risks of this procedure. The bronchoscope was advanced through the oral cavity, and at the level of the vocal cords, 2% lidocaine was instilled. Then, the bronchoscope was advanced through the vocal cords into the trachea, which appeared normal. However, at the level of the shanti, large thick, yellowish mucus plug was noted, which was lavaged and aspirated. Then, 1% lidocaine was instilled, and the bronchoscope was advanced through the right main bronchus, and unique finding of endobronchial growth from radiation was noted. I was unable to pass the therapeutic scope beyond those lesions, and forceps biopsy was obtained from one of them to rule out any abnormal and cancerous growth. Lavage was obtained from the right main bronchus and right lower lobe. The bronchoscope was retracted and then readvanced into the left main bronchus. Then, the left upper lobe, lingula and left lower lobe were examined, which appeared normal. The bronchoscope was retracted out then, and patient tolerated his procedure well with no immediate complications. Dictated by... Libby Ga M.D. Unit #: [id number] #: [id number] Patient: EDDIE BENTLEY EA/db TD: 01/20/2017 07:41 JOB #: [id number] PROCEDURE OPERATIVE NOTE Page 1 of 1 X LIBBY DU MD PROCEDURE OPERATIVE NOTE
--- NOTE | ~2017-01-15 | DS ---
Unit #: [id number] #: [id number] Patient: EDDIE BENTLEY [id number] [address] [place], [place] [address] [id number] I MR#: [id number] NAME: EDDIE BENTLEY. ROOM: 240 Age: 66 Sex: M Admission Date: 01/15/2017 : 1950 Discharge Date: 01/22/2017 Attending Physician: Bhaskar Donald M.D. Primary Care Physician: Nirmal Hanson M.D. DISCHARGE SUMMARY REASON FOR ADMISSION/INITIAL HOSPITAL COURSE Please see H and P for complete details. A 66-year-old male was admitted secondary to fever, initially treated for septic shock, aspiration pneumonia, required vasopressors initially secondary to hypotension, treated in the ICU. He was transitioned out of ICU. He was placed off vasopressors. He was appropriately placed on IV antibiotics in regard to possible concern for aspiration pneumonia. The patient was initially thought to have aspiration secondary to his radiation fibrosis, underwent EGD, showed esophageal dysmotility, underwent J-tube placement. Postoperatively, he has otherwise done well, tolerated tube feeds without difficulty. At this point in time, the patient is clinically stable for discharge. He will be discharged home with the understanding of followup with Oncology as an outpatient as well as with Dr. Decker in regard to J-tube placement in approximately 6 weeks. He will also follow up with Dr. [facility] in approximately 2 weeks. FINAL DISCHARGE DIAGNOSES 1. Sepsis, now resolved. 2. Aspiration pneumonia. 3. Lymphoma. 4. Dysphagia, status post J-tube placement. 5. Weight loss. 6. Prior history of Hodgkin lymphoma. 7. Radiation fibrosis, lung. 8. Seizure disorder. 9. Prior history of deep venous thrombosis/pulmonary embolism, on chronic anticoagulation with Coumadin. FINAL DISCHARGE MEDICATIONS ProAir HFA 1 inhalation q.6 p.r.n.; Symbicort 160/4.5 two puffs b.i.d.; Coumadin 7.5 mg daily; Lamictal 100 mg b.i.d.; Keppra 1000 mg b.i.d.; trazodone 100 mg q.h.s.; Zyrtec 10 mg daily; Reglan 5 mg q.6 hours; scheduled Brainard 5/325 q.6 p.r.n., #15 prescription given; Augmentin 875 mg b.i.d. x7 days; Protonix 40 mg daily. DISCHARGE CONDITION Stable. DISCHARGE DISPOSITION Home. Unit #: [id number] #: [id number] Patient: EDDIE BENTLEY Dictated by... Roshan Haro/keshav TD: 01/24/2017 01:45 JOB #: [id number] DISCHARGE SUMMARY Page 1 of 1 X Juanito Palma MD X DISCHARGE SUMMARY
--- NOTE | ~2017-01-15 | CT16 ---
[facility] A Service of [facility] & [facility] RADIOLOGY TEXT RESULTS PATIENT: EDDIE BENTLEY LOCATION: [place] [id number] : [birth year] UNIT #: [id number] AGE: [address]: Bhaskar Donald MD SEX: M ORDER DR: [id number] [facility] [address] [facility]. [place], [place] [address] [id number] I MR#: [id number] Acc #: [id number] NAME: EDDIE BENTLEY : 1950 SEX: M STUDY DATE/TIME: 01/15/2017 22:38 UNIT: [facility] ROOM: [facility] STUDY DESCRIPTION: CT Angio Chest for PE Attending Physician: Bhaskar Donald M.D. Ordering Physician: Kaylie Schwartz M.D. Primary Care Physician: Nirmal Hanson M.D. MEDICAL IMAGING REPORT This report is preliminary unless electronic signature is present EXAM Chest CTA 01/15 at 22:38 INDICATION Cough, fever, chills today. Shortness of air for 1.5 weeks. History of lymphoma. TECHNIQUE Axial images were obtained through the chest following IV contrast administration. 3-D reformats were obtained. No comparison chest CT. This CT examination was performed with one or more of the following radiation dose reduction techniques: automatic exposure control, adjustment of mA and/or kV according to patient size, and iterative reconstruction. 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 This is by NASCET criteria. There is relative moderate stenosis in the proximal right subclavian artery. 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 No aortic dissection is seen. No definite pulmonary embolism. There is a small right pleural effusion that has a chronic loculated appearance at the base. There is narrowing of the right mainstem bronchus and there is debris in the right mainstem bronchus and at least in the right lower lobe bronchus. There are diffuse infiltrates in the right lung with volume loss. This has the appearance of diffuse pneumonia. There is some component of volume loss and fibrosis present as well, particularly in the upper lobe. Calcified soft tissue around the right pulmonary hilum is present and may be related to granulomatous disease and/or treated lymphoma. The right middle lobe may be completely scarred down. Anatomy is distorted. There is some fibrosis in the medial left upper lobe. Left lung is otherwise clear. There is a trace amount of left-side pleural fluid. There is a subcarinal lymph node measuring 2.3 x 1.3 cm. This is entirely nonspecific and may simply be reactive. [facility] A Service of [facility] RADIOLOGY TEXT RESULTS PATIENT: EDDIE BENTLEY LOCATION: [address] : [birth year] UNIT #: [id number] AGE: [address]: Bhaskar Donald MD SEX: M ORDER DR: Multiple calcified right paratracheal and mediastinal nodes are seen. Upper abdomen is unremarkable allowing for bolus timing. IMPRESSION 1. No pulmonary embolism or aortic dissection. 2. There is relatively diffuse pneumonia in the right lung in a patchy distribution. 3. Chronic-appearing small right pleural effusion. There is a trace amount of left pleural fluid. 4. Extensive fibrotic changes on the right with volume loss, particularly in the right middle lobe. Multiple calcifications within soft tissue prominence around the right hilum may reflect the sequelae of prior treated lymphoma. Similar although less pronounced changes are present in the medial left upper lobe. 5. Narrowing of the right mainstem bronchus with debris in the right mainstem bronchus extending predominantly into the lower lobe bronchi. 6. Atherosclerotic disease. 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 There is also a short segment moderate stenosis in the proximal right subclavian artery. The left subclavian artery appears occluded near its origin. 7. Enlarged subcarinal lymph node, probably reactive. Comparison with outside prior chest CTs recommended. Additionally, I would suggest a follow up contrast chest CT in about 3 months. Dictated by... Caleb Babcock Jr., M.D. THIS IS AN ELECTRONICALLY VERIFIED REPORT Caleb Babcock Jr., M.D. at 01/16/2017 9:15 PM DIMITRIS/lashanda TD: 01/16/2017 14:19 JOB #: [id number] MEDICAL IMAGING REPORT Page 1 of 1 COPY
--- NOTE | ~2017-01-15 | OR ---
Unit #: [id number] #: [id number] Patient: EDDIE BENTLEY [id number] [address] [address] [id number] I MR#: [id number] NAME: EDDIE BENTLEY ROOM: 240 Date of Procedure: 01/20/2017 Admission Date: 01/15/2017 Surgeon: Efraín Decker M.D. : 1950 Attending Physician: Bhaskar Donald M.D. Primary Care Physician: Nirmal Hanson M.D. OPERATIVE REPORT PROCEDURE PERFORMED Colonoscopy to cecum. INDICATIONS FOR PROCEDURE The patient with anemia, abdominal pain, severe weight loss, undergoing evaluation with colonoscopy. MEDICATIONS Monitored anesthesia. POSTOPERATIVE FINDINGS 1. Colonoscopy completed to cecum. Prep was poor, but extensive lavaging was done. 2. Small ulcer, ascending colon, most likely ischemic. No biopsies taken as INR was 2.3. 3. No polyps, masses, or colitis. PLAN Continue with current treatment. DESCRIPTION OF PROCEDURE The patient was explained of the procedure, risks, and benefits along with the risks and benefits of anesthesia. He was brought to the endoscopy room. Propofol anesthesia was given. Rectal exam was done, which was normal. Colonoscope was lubricated, passed up the rectum, advanced under direct vision all the way to the cecum. Cecum was identified by ileocecal valve and appendiceal orifice. Ulcer was seen in the ascending colon. No biopsies taken. I continued to pull the scope out. No polyps, masses, or colitis was seen. Extensive lavaging was done. I retroflexed in the rectum, small hemorrhoids seen. Scope was gently pulled out. He tolerated it well. Dictated by... Roshan Peña/alyl TD: 01/20/2017 17:23 JOB #: [id number] Unit #: [id number] #: [id number] Patient: EDDIE BENTLEY OPERATIVE REPORT Page 1 of 1 X Efraín Decker MD PROCEDURE OPERATIVE NOTE
--- NOTE | ~2017-01-15 | HP ---
Unit #: [id number] #: [id number] Patient: EDDIE BENTLEY [id number] [address] [place], [place] [address] [id number] I MR#: [id number] NAME: EDDIE BENTLEY. ROOM: [facility] Age: 66 Sex: M Admission Date: 01/16/2017 : 1950 Attending Physician: Bhaskar Donald M.D. Primary Care Physician: Nirmal Hanson M.D. HISTORY AND PHYSICAL CHIEF COMPLAINT Fever, chills, cough, hypotension. DISCUSSION This is a 66-year-old gentleman with a history of Hodgkin disease diagnosed in 1991, has a chemotherapy/radiation, history of peripheral vascular disease requiring bilateral carotid endarterectomy, and also risk of subclavian steal syndrome on left side, requiring left carotid graft twice and right side also. He has a history of abnormal weight loss more than 100 pounds secondary to low appetite and decreased sensation of smell. Patient underwent PEG tube recently in December, being on tube feed, history of DVT and pulmonary embolism, being on chronic anticoagulation, pleural effusion and history of radiation fibrosis of right lung, seizure disorder. He was brought to the emergency room with chief complaining of not feeling very well, fever 102.9 at home. In the ER, the patient was found to be hypotensive, blood pressure 75/55, sodium 128, white count 14,000. Chest x-ray abnormal on the right side, suspected patchy air space disease in right lower lung with fibrotic changes, suspected postoperative pneumonia. Patient is going for the CT scan for further evaluation at this time, which is not done at this time, but also on further questioning he said he had been coughing for a couple of weeks, which is getting progressive worse yellowish phlegm. Denies chest pain. Denies nausea, vomiting, loss of consciousness, headache. PAST MEDICAL HISTORY 1. History of Hodgkin disease diagnosed in 1991 treated with chemo and radiation. 2. History of weight loss more than 100 pounds secondary to decreased sense of smells and parosmia, still with PEG tube placement in 12/2016. 3. History of radiation fibrosis in the right lung. 4. Seizure disorder. 5. History of DVT. 6. History of pulmonary embolism. 7. Left subclavian steal syndrome. History of left carotid subclavian graft x2 and also history of right carotid endarterectomy. 8. Colonoscopy. 9. Hemorrhoidectomy. 10. Lung biopsy at the time of Hodgkin disease. FAMILY HISTORY No history of malignancy in the immediate family. SOCIAL HISTORY He is and lives with his . He was unable to work from 2007 Unit #: [id number] #: [id number] Patient: EDDIE BENTLEY after developing seizure disorder. He used to smoke one pack daily until 1990 when he was diagnosed with Hodgkin disease. He quit smoking and does not drink alcohol. MEDICATION FROM HOME 1. Lortab 5/325 mg one tablet 3 times a day p.r.n. 2. ProAir two puffs q.6 hours p.r.n. 3. Symbicort 160/4.5 two puffs b.i.d. 4. Mucinex b.i.d. 5. Stool softener b.i.d. limit to 100 mg twice a day. 6. Keppra 1 g b.i.d. 7. Zyrtec 10 mg at bedtime. 8. Coumadin 7.5 m daily. 9. Desyrel 100 mg at bedtime. REVIEW OF SYSTEMS All review of systems negative except history of presenting illness. PHYSICAL EXAMINATION GENERAL: On examination a middle-aged man, who looks ill and underweight. He is alert, awake, oriented x3 VITAL SIGNS: His current vitals are following: Temperature 98.1, heart rate 120, respiratory rate 18, blood pressure 75/55, oxygen 94% on room air. NECK: Positive scar on the left carotid neck area. No JVD. HEART: S1, S2, regular tachycardial. LUNGS: Decreased air entry with bilateral crackles. ABDOMEN: Soft, nontender, nondistended. Bowel sounds positive. EXTREMITIES: To inspection normal. No cyanosis, no clubbing, no edema. NEUROLOGIC: Alert and oriented x3 without any focal findings. Power 5/5 in both sides. Cranial nerves were intact. PSYCH: Normal mood and affect. SKIN: Warm and dry. DIAGNOSTIC STUDIES LABORATORY WORKUP: Sodium 128, potassium 4.9, chloride 87, CO2 31, glucose 94, BUN 19, creatinine 1, AST 43, alk phos 122, lactic acid level 2.3, INR 3. Troponin less than 0.05. CBC - white count 14, hemoglobin 11, hematocrit 34.5, platelets 407. IMAGING STUDIES: CT - chest x-ray right lungs look okay on right side, decreased volume. There is suspected pleural effusion versus thickening of pleura. Also there was a calcified right hilar questionable mass extensive and right pleura (1) suspected for postoperative pneumonia. ASSESSMENT AND PLAN 1. Pneumonia/sepsis. Further workup CT scan is pending at time of dictation. Will admit the patient, start on antibiotic Zosyn and vancomycin, DuoNeb. Will followup CT scan. 2. Hypotension. Patient given IV fluids with normal saline. Will continue normal saline. If patient does not improve, patient may start on the vasopressor. Will monitor. 3. Mild hyponatremia. Start IV fluid normal saline. 4. History of Hodgkin disease diagnosed in 1991. Treated with chemoradiation. 5. History of weight loss more than 100 pounds. History of past PEG Unit #: [id number] #: [id number] Patient: EDDIE BENTLEY placement on tube feeds. Patient is not eating secondary to no smell. 6. Peripheral vascular disease, previous left carotid endarterectomy x2. 7. History of radiation fibrosis of right lung. 8. Pleural effusion. 9. DVT and pulmonary embolism being on chronic anticoagulation on Coumadin INR. INR is 3, hold Coumadin today. Recheck INR tomorrow. 10. History of seizures. 11. DVT prophylaxis on Coumadin. Dictated by Roshan Peterson/da TD: 01/16/2017 09:00 JOB #: [id number] HISTORY AND PHYSICAL Page 1 of 1 X X HISTORY AND PHYSICAL
--- NOTE | ~2017-01-15 | A ---
[facility] Nutrition Therapy DATE: 01/16/17 Patient: EDDIE Prasad AXEL Physician: MARLENE Address: [address] [facility] Room/Bed: [address], Zip: [place] [address] Admit Date: 01/16/17 Date of : [birth year] Height: 6 0 Weight: 126 57.5 NUTRITIONAL ASSESSMENT: REASON: No diet in the ICU / enteral nutrition recommendations Admitting dx: Pt is a 66 y/o male admitted with PNA sepsis PMH: Hodgkin's disease s/p chemo and radiation, subclavian steal syndrome, radiation fibrosis, seizure disorder (2' radiation?) DVT, G-tube Anthropometrics: Ht:73" Wt:57kg BMI:16.5 %IBW:68% Labs: Cl-:99, Alb:3.0, Lip:20 Meds: Levophed, Protonix, Robitussin, Zofran, Keppra, Lovenox I/O & Bowel function: nothing documented Skin Integrity: nothing documented Estimated Nutrition Needs: 7870-6419 kcals (32-36 kcal/kg) 85-103 g protein (1.5-1.8 g pro/kg) Fluids consistent with kcal needs or per MD. Assessment: Chart reviewed, events noted. Pt admitted for above DX, ?aspirating. Per RN and chart, bronchoscopy scheduled as well as deciding whether to use a G-tube or J-tube. Pt was previously seen on 12/30/16 post PEG tube placement in preparation for home enteral nutrition therapy. RD was able to speak to the pt and family in the room. reports that the pt has been receiving Jevity 1.2 cans vs. the recommended 1.5 (possibly due to Medicare coverage?). She also reports that the pt has not been receiving his recommended amount of water flushes because the information was never relayed to her. The also states that she was sent a different syringe to use at home than was given in the hospital, and that she finds it difficult to use. Pt reports that he is getting 1 and a half cans of Jevity 1.2 q 6 hours vs the 1 can q [address] will contact the family caseworker to discuss the pt's Medicare coverage for Jevity 1.5. RD will also make sure to provide enteral nutrition recommendations to family and pt before they leave. RD will continue to follow this pt. Dx: Severe kcal and protein malnutrition r/t current clinical condition, PMH, minimal PO intake and appetite AEB BMI of 16.5 (underweight), 68% IBW, ~115# weight loss in year and [facility] Nutrition Therapy DATE: 01/16/17 Patient: EDDIE BENTLEY Physician: MARLENE Address: [address] [place] [address] Room/Bed: [address], Zip: [place] [address] Admit Date: 01/16/17 Date of : [birth year] Height: 6 0 Weight: 126 57.5 a half (severe). Intervention: See RD recs below Monitoring, Evaluation and Goals: 1. Oral diet advancement vs. enteral nutrition initiation 2. Promote gradual weight gain; prevent any further weight loss. 3. Labs WNL. Monitor: criteria to determine if above goals met Recommendations: 1. Once medically feasible advance diet per ADMISSIONS REPRESENTATIVE to regular with no restrictions. 2. Recommend to advance number of cans-total bolus feed of Jevity 1.5/6 cans (237 ml each can) total daily - Provides 2160 kcal, 91 g protein, 1094 ml free H2O - Add free H2O flushes of 160 ml after each feeding Recommend one can (237 ml) q 4 hours to meet pt's current estimated needs. 3. If pt unable to tolerate bolus feeds, recommend continuous 24-hour enteral feeding of Jevity 1.5 @ 20 ml/hr, advance 10 ml q 4 hours to goal rate of 60 ml/hr. - Provides 2160 kcal, 91 g protein, 1094 ml free H2O - Add free H2O flushes of 160 ml q 4 hours to meet pt's current estimated fluid needs. 4. Please weigh q 3 days for monitoring purposes as pt is clinically underweight. RD will follow Mod-severe Respectfully, Rachel Lam, [employer]ring Machine Operator [employer] Regalado, MS, RD, LD [employer] [facility] [employer] cc: client file
[~2017-01-15 18:45] MED LIST changes: +DESYREL100 MG PO; +KEPPRA500 MG PO; +LAMOTRIGINE100 MG PO; +LORTAB 5-325 M1 EACH PO; +MUCINEX; +PROAIR HFA8.5 GM INH; +STOOL SOFTENER; +SYMBICORT; +WARFARIN SODIU7.5 M1 PO; +ZYRTEC10 M1 PO; +[UNRECOGNIZED DRUG - REMARK]
[2017-01-15 20:50] LABS: BASOPHIL% 0.2 % (0-2.5); DIFF IND NO; EOSINOPHIL% 0.1 % (0.0-7.0); HEMATOCRIT 34.5 % (38.0-50.0); HEMOGLOBIN 11.1 gm/dL (13.0-16.0); LYMPHOCYTE# 0.4 X10e3 (1.0-3.5); LYMPHOCYTE% 3.1 % (17.0-45.0); MEAN CELL VOLUME 87.1 FL (83-96); MEAN CORPUSCULAR HEMOGLOBIN 28.1 PG (28-34); MEAN CORPUSCULAR HGB CONC 32.3 g/dL (30-36); MEAN PLATELET VOLUME 6.3 FL (6.5-11.5); MONOCYTE% 6.8 % (3.0-12.0); NEUTROPHIL# 12.7 X10e3 (1.5-7.1); NEUTROPHIL% 89.8 % (40-75); PLATELET COUNT 407 X10e3 (140-420); RED BLOOD COUNT 3.97 X10e (3.90-5.60); RED CELL DISTRIBUTION WIDTH 14.1 % (11.0-15.5); WHITE BLOOD COUNT 14.1 X10e3 (4.0-10.5)
[2017-01-15 21:12] LABS: POC - CKMB 1.6 ng/mL (0.0-7.9); POC - TROPONIN <0.05 ng/mL (<=0.05)
[2017-01-15 21:13] LABS: PROTHROMBIN TIME (PATIENT) 32.8 SECONDS (10.0-11.7)
[2017-01-15 21:26] LABS: ALBUMIN SERUM 2.8 g/dL (3.5-5.0); BILIRUBIN, DIRECT 0.2 mg/dL (0.0-0.2); BILIRUBIN,INDIRECT 0.4 mg/dL (0.0-0.9); BILIRUBIN,TOTAL 0.6 mg/dL (0.2-2.0); CALCIUM SERUM 8.8 mg/dL (8.4-10.2); GLOM FILT RATE Estimated 78.6 mL/min (>60); POTASSIUM 4.9 mmol/L (3.5-5.1)
[2017-01-15 23:51] LABS: URINE SOURCE CLEAN CATCH
[2017-01-16 00:06] LABS: URINE APPEARANCE CLEAR; URINE BILIRUBIN NEG (NEG); URINE BLOOD TRACE (NEG); URINE COLOR YELLOW; URINE GLUCOSE NEG (NEG); URINE KETONE NEG (NEG); URINE LEUKOCYTE ESTERASE NEG (NEG); URINE NITRATE NEG (NEG); URINE PH 7.5 (5-8); URINE PROTEIN NEG (NEG); URINE SPECIFIC GRAVITY 1.025 (1.003-1.035); URINE UROBILINOGEN 0.2 MG/DL (NEG)
[2017-01-16] MEDS ORDERED: SYMBICORT INH (00:06)
[2017-01-16 00:09] LABS: CULTURE INDICATED? NO; URINE BACTERIA AUWI NEG (NEGATIVE); URINE SQUAMOUS EPITHELIAL CELL NONE SEEN /[HPF]; UWBCS1 AUWI 0-2 (0-5)
[2017-01-16] MEDS ORDERED: MILK OF MAGNESIA PO (00:09)
[2017-01-16] MEDS ORDERED: ALBUTEROL 0.5ML INH (00:10)
[2017-01-16 07:42] LABS: BASOPHIL# 0.1 X10e3 (0-0.3); BASOPHIL% 0.5 % (0-2.5); EOSINOPHIL# 0.1 X10e3 (0-0.7); HEMATOCRIT 36.6 % (38.0-50.0); HEMOGLOBIN 12.2 gm/dL (13.0-16.0); LYMPHOCYTE# 0.8 X10e3 (1.0-3.5); LYMPHOCYTE% 6.1 % (17.0-45.0); MEAN CELL VOLUME 86.6 FL (83-96); MEAN CORPUSCULAR HEMOGLOBIN 28.9 PG (28-34); MEAN CORPUSCULAR HGB CONC 33.4 g/dL (30-36); MEAN PLATELET VOLUME 6.3 FL (6.5-11.5); MONOCYTE# 0.9 X10e3 (0-1.0); MONOCYTE% 7.1 % (3.0-12.0); NEUTROPHIL# 10.8 X10e3 (1.5-7.1); NEUTROPHIL% 85.3 % (40-75); PLATELET COUNT 377 X10e3 (140-420); RED BLOOD COUNT 4.23 X10e (3.90-5.60); RED CELL DISTRIBUTION WIDTH 14.5 % (11.0-15.5); WHITE BLOOD COUNT 12.7 X10e3 (4.0-10.5)
[2017-01-16 07:45] LABS: DIFF IND NO
[2017-01-16 08:04] LABS: INR 3.3; PARTIAL THROMBOPLASTIN TIME 49.5 SECONDS (23.5-31.3); PROTHROMBIN TIME (PATIENT) 36.4 SECONDS (10.0-11.7)
[2017-01-16 08:15] LABS: BILIRUBIN,TOTAL 0.7 mg/dL (0.2-2.0); CALCIUM SERUM 9.1 mg/dL (8.4-10.2); CREATININE SERUM 0.7 mg/dL (0.6-1.4); GLOM FILT RATE Estimated 99.1 mL/min (>60); POTASSIUM 4.5 mmol/L (3.5-5.1); PROTEIN TOTAL SERUM 7.3 g/dL (6.0-8.3)
[2017-01-17 05:53] LABS: INR 4.4; PROTHROMBIN TIME (PATIENT) 47.8 SECONDS (10.0-11.7)
[2017-01-18 05:19] LABS: BASOPHIL% 0.7 % (0-2.5); EOSINOPHIL# 0.2 X10e3 (0-0.7); EOSINOPHIL% 3.6 % (0.0-7.0); HEMATOCRIT 28.7 % (38.0-50.0); LYMPHOCYTE# 0.6 X10e3 (1.0-3.5); LYMPHOCYTE% 8.7 % (17.0-45.0); MEAN CELL VOLUME 86.3 FL (83-96); MEAN CORPUSCULAR HEMOGLOBIN 29.1 PG (28-34); MEAN CORPUSCULAR HGB CONC 33.7 g/dL (30-36); MEAN PLATELET VOLUME 6.3 FL (6.5-11.5); MONOCYTE# 0.6 X10e3 (0-1.0); MONOCYTE% 9.1 % (3.0-12.0); NEUTROPHIL% 77.9 % (40-75); PLATELET COUNT 377 X10e3 (140-420); RED BLOOD COUNT 3.32 X10e (3.90-5.60); RED CELL DISTRIBUTION WIDTH 14.2 % (11.0-15.5); WHITE BLOOD COUNT 6.4 X10e3 (4.0-10.5)
[2017-01-18 05:30] LABS: INR 1.5
[2017-01-18 05:31] LABS: PROTHROMBIN TIME (PATIENT) 16.2 SECONDS (10.0-11.7)
[2017-01-18 05:44] LABS: ALBUMIN SERUM 2.1 g/dL (3.5-5.0); BILIRUBIN,TOTAL 0.8 mg/dL (0.2-2.0); BUN/CREATININE RATIO 18.33; CALCIUM SERUM 8.5 mg/dL (8.4-10.2); CREATININE SERUM 0.6 mg/dL (0.6-1.4); GLOM FILT RATE Estimated 105.6 mL/min (>60); POTASSIUM 4.6 mmol/L (3.5-5.1); PROTEIN TOTAL SERUM 4.9 g/dL (6.0-8.3)
[2017-01-18 05:49] LABS: HEMOGLOBIN 9.7 gm/dL (13.0-16.0)
[2017-01-18 05:50] LABS: DIFF IND NO
[2017-01-19 17:59] LABS: INR 2.2; PROTHROMBIN TIME (PATIENT) 23.4 SECONDS (10.0-11.7)
[2017-01-20 05:25] LABS: HEMATOCRIT 28.2 % (38.0-50.0); HEMOGLOBIN 9.1 gm/dL (13.0-16.0); MEAN CELL VOLUME 88.6 FL (83-96); MEAN CORPUSCULAR HEMOGLOBIN 28.7 PG (28-34); MEAN CORPUSCULAR HGB CONC 32.4 g/dL (30-36); MEAN PLATELET VOLUME 6.2 FL (6.5-11.5); RED BLOOD COUNT 3.19 X10e (3.90-5.60); WHITE BLOOD COUNT 5.8 X10e3 (4.0-10.5)
[2017-01-20 05:45] LABS: INR 2.3; PROTHROMBIN TIME (PATIENT) 25.4 SECONDS (10.0-11.7)
[2017-01-20 20:47] LABS: ALBUMIN SERUM 2.5 g/dL (3.5-5.0); ALKALINE PHOSPHATASE 92 U/L (32-92); ALT (SGPT) 25 U/L (10-40); AST (SGOT) 24 U/L (10-42); BILIRUBIN,TOTAL 0.3 mg/dL (0.2-2.0); BLOOD UREA NITROGEN <5 mg/dL (9-23); BUN/CREATININE RATIO 8.33; CALCIUM SERUM 8.8 mg/dL (8.4-10.2); CARBON DIOXIDE 32 mmol/L (22-31); CHLORIDE 98 mmol/L (100-111); CREATININE SERUM 0.6 mg/dL (0.6-1.4); GLOM FILT RATE Estimated 105.6 mL/min (>60); GLUCOSE FASTING 97 mg/dL (70-110); POTASSIUM 3.9 mmol/L (3.5-5.1); SODIUM 136 mmol/L (135-145)
[2017-01-21 05:23] LABS: HEMATOCRIT 28.6 % (38.0-50.0); HEMOGLOBIN 9.6 gm/dL (13.0-16.0); MEAN CORPUSCULAR HEMOGLOBIN 28.9 PG (28-34); MEAN CORPUSCULAR HGB CONC 33.6 g/dL (30-36); MEAN PLATELET VOLUME 5.8 FL (6.5-11.5); RED BLOOD COUNT 3.32 X10e (3.90-5.60); RED CELL DISTRIBUTION WIDTH 14.1 % (11.0-15.5); WHITE BLOOD COUNT 4.8 X10e3 (4.0-10.5)
[2017-01-21 05:52] LABS: CALCIUM SERUM 8.7 mg/dL (8.4-10.2); CARBON DIOXIDE 33 mmol/L (22-31); CHLORIDE 101 mmol/L (100-111); CREATININE SERUM 0.6 mg/dL (0.6-1.4); GLOM FILT RATE Estimated 105.6 mL/min (>60); GLUCOSE FASTING 100 mg/dL (70-110); POTASSIUM 4.2 mmol/L (3.5-5.1); SODIUM 138 mmol/L (135-145)
[2017-01-21 05:54] LABS: BLOOD UREA NITROGEN <5 mg/dL (9-23); BUN/CREATININE RATIO 8.33
[2017-01-22 06:43] LABS: MEAN CELL VOLUME 86.8 FL (83-96); MEAN CORPUSCULAR HGB CONC 32.2 g/dL (30-36); MEAN PLATELET VOLUME 6.3 FL (6.5-11.5); RED BLOOD COUNT 3.57 X10e (3.90-5.60); RED CELL DISTRIBUTION WIDTH 14.1 % (11.0-15.5); WHITE BLOOD COUNT 5.7 X10e3 (4.0-10.5)
[2017-01-22 07:34] LABS: ALBUMIN SERUM 2.3 g/dL (3.5-5.0); ALKALINE PHOSPHATASE 84 U/L (32-92); ALT (SGPT) 23 U/L (10-40); AST (SGOT) 20 U/L (10-42); BILIRUBIN,TOTAL <0.1 mg/dL (0.2-2.0); BLOOD UREA NITROGEN 7 mg/dL (9-23); BUN/CREATININE RATIO 11.66; CALCIUM SERUM 8.8 mg/dL (8.4-10.2); CARBON DIOXIDE 34 mmol/L (22-31); CHLORIDE 100 mmol/L (100-111); CREATININE SERUM 0.6 mg/dL (0.6-1.4); GLOM FILT RATE Estimated 105.6 mL/min (>60); GLUCOSE FASTING 106 mg/dL (70-110); POTASSIUM 4.7 mmol/L (3.5-5.1); PROTEIN TOTAL SERUM 5.3 g/dL (6.0-8.3); SODIUM 139 mmol/L (135-145)
[2017-01-22] MEDS ORDERED: AUGMENTIN250 MG/5 M JT (10:10)
[2017-01-22] MEDS ORDERED: PROTONIX40 M1 PEG (10:11)
[2017-01-22] MEDS ORDERED: KEPPRA500 MG/51 PO (10:13)
[2017-01-22] MEDS ORDERED: REGLAN5 MG PEG (10:15)
[2017-01-22] MEDS ORDERED: HYDROCODON-ACE1 EAC7 PEG (10:19)
[2017-01-22 11:29] LABS: INR 1.8; PROTHROMBIN TIME (PATIENT) 19.7 SECONDS (10.0-11.7)
== END 2017-01-22 12:54 | disposition home or self-care (01) | DRG 853 ==
LOC: CED 18:45 → CEDOF 23:00 → C2A 23:00 → CICCU3 01-16 00:02 → CEDOF 01-16 00:02 → CED 01-16 00:02 → C2A 01-16 00:02 → CICCU3 01-16 06:46 → CEDOF 01-16 06:46 → CICCU3 01-16 06:46 → C2A 01-17 11:41
PROVIDERS: Emergency Medicine; Family Medicine; Internal Medicine; Internal Medicine Pulmonary Disease
PROC: B32TYZZ Computerized Tomography (CT Scan) of Left Pulmonary Artery using Other Contrast (ICD-10-PCS; 2017-01-15)
PROC: B32SYZZ Computerized Tomography (CT Scan) of Right Pulmonary Artery using Other Contrast (ICD-10-PCS; 2017-01-15)
PROC: 02HV33Z Insertion of Infusion Device into Superior Vena Cava, Percutaneous Approach (ICD-10-PCS; 2017-01-16)
PROC: B548ZZA Ultrasonography of Superior Vena Cava, Guidance (ICD-10-PCS; 2017-01-16)
PROC: 0B9F8ZX Drainage of Right Lower Lung Lobe, Via Natural or Artificial Opening Endoscopic, Diagnostic (ICD-10-PCS; principal; 2017-01-18 12:53)
PROC: 0BBC8ZX Excision of Right Upper Lung Lobe, Via Natural or Artificial Opening Endoscopic, Diagnostic (ICD-10-PCS; 2017-01-18 12:53)
PROC: 0DJD8ZZ Inspection of Lower Intestinal Tract, Via Natural or Artificial Opening Endoscopic (ICD-10-PCS; 2017-01-20)
DX: A41.9 Sepsis, unspecified organism (principal); R65.21 Severe sepsis with septic shock; J96.00 Acute respiratory failure, unspecified whether with hypoxia or hypercapnia; J69.0 Pneumonitis due to inhalation of food and vomit; E44.0 Moderate protein-calorie malnutrition; R13.10 Dysphagia, unspecified; E87.1 Hypo-osmolality and hyponatremia; Z68.1 Body mass index [BMI] 19.9 or less, adult; J70.1 Chronic and other pulmonary manifestations due to radiation; Z85.72 Personal history of non-Hodgkin lymphomas; G40.909 Epilepsy, unspecified, not intractable, without status epilepticus; D53.9 Nutritional anemia, unspecified; I73.9 Peripheral vascular disease, unspecified; J44.9 Chronic obstructive pulmonary disease, unspecified; Z87.891 Personal history of nicotine dependence; Z86.718 Personal history of other venous thrombosis and embolism; Z86.711 Personal history of pulmonary embolism; Z79.01 Long term (current) use of anticoagulants
CPT/HCPCS: 36415; 71010; 71275; 74220; 74230; 75820; 76937; 77001; 80048; 80053; 80076; 81003; 82150; 82533; 82553; 82947; 83605; 83690; 84484; 85025; 85027; 85610; 85730; 87040; 87070; 87102; 87116; 87205; 87206; 88108; 88305; 88312; 89190; 92526; 92611; 93005; 94640; 94760; 94761; 96361; 96365; 96367; 99285; C1751; C9113; G8996-GN; G8997-GN; J0171; J1650; J2543; J2765; J3260; J3370; J3430; Q9967